=== PATIENT | female | born 1990 | race Caucasian/White ===

== ENCOUNTER 2018-08-19 15:10 | Observation (INO) | payer OTHER ==
--- NOTE | 2018-08-19 15:39 | OBPROG ---
Labor Progress Note Assessment/Plan: Assessment: 27 yo G1 at 38w6d, presents with one mild range BP in clinic and new irregular ctxs - for labor check and PIH eval. PIH labs all WNL except elevated LDH mildly elevated and PCR came back 0.78. BP's here have been normal to LOW during her evaluation - most recently 110s/ 60s. We've had no further mild range BP's - no dx of GHTN or PIH at this time. SCE repeated and unchanged. Will have back to clinic for BP check in next 1-2 days - precautions reviewed. LINN Subjective/Intrapartum Course: Saw Ameena in clinic this afternoon - added on for labor check. Also found to have 140/92 BP. Ctx's started at 0100 this morning - 1-2cm, 70%, -2, soft, mid position. Objective: Laboratory Tests 08/19/18 08/19/18 08/19/18 15:55 15:55 15:55 Hct 37.8 L MCV 85.3 Plt Count 281 BUN 12 Creatinine 0.7 Estimated GFR > 60 Uric Acid 6.1 Total Bilirubin 0.6 Conjugated Bilirubin 0.4 Unconjugated Bilirubin 0.2 AST 19 ALT 37 Lactate Dehydrogenase 620 H Ur Random Creatinine 20.4 U Random Total Protein 16 H PCR 0.78 - SVE Dilation (cm): 1 (1-2) Effacement (%): 75 (70) Station: -2 Membranes: Intact - Contraction Pattern Assessment Current Contraction Pattern: Irregular - FHR Assessment Twin A FHR (bpm): 130 FHR Pattern Variability: Moderate FHR Category: 1 ICD10 Worksheet Patient Problems: Problems Problem Status Onset Proteinuria affecting Acute - ICD10 Problem Qualifiers (1) Proteinuria affecting Qualifiers: Trimester: third trimester Qualified Code(s): O12.13 - Gestational proteinuria, third trimester
[2018-08-19 16:17] LABS: PLATELET COUNT 281 10^3/uL (150-400)
== END 2018-08-19 17:20 | disposition home or self-care (01) ==
LOC: FLD 15:10
PROVIDERS: ADMIT Obstetrics & Gynecology; ATTEND Obstetrics & Gynecology
DX: O99.89 Other specified diseases and conditions complicating pregnancy, childbirth and the puerperium (principal); R03.0 Elevated blood-pressure reading, without diagnosis of hypertension; O47.1 False labor at or after 37 completed weeks of gestation; Z3A.38 38 weeks gestation of pregnancy
CPT/HCPCS: G0378

== ENCOUNTER 2018-08-21 11:11 | Inpatient (IN) | payer OTHER ==
[2018-08-21] MEDS ORDERED: AMMONIA AROMATIC 1 EACH AMP IH ONE (11:24)
[2018-08-21] MEDS ORDERED: OLIVE OIL 118 ML BTL MISC ONE (11:24)
[2018-08-21] MEDS ORDERED: TERBUTALINE SULFATE 1 MG/ML VIAL ONE (11:24)
[2018-08-21] MEDS ORDERED: LIDOCAINE 1% 300 MG/30 ML SDV ONE (11:24)
[2018-08-21] MEDS ORDERED: MISOPROSTOL 200 MCG TAB ONE (11:25)
[2018-08-21] MEDS ORDERED: OXYTOCIN/RINGERS LACTATE 20 UNIT/1,000 ML BAG IV ONE (11:25)
[2018-08-21] MEDS ORDERED: OXYTOCIN 10 UNIT/ML VIAL ONE (11:25)
[2018-08-21] MEDS ORDERED: EPSOM SALT 454 GM TP PRN (11:40)
[2018-08-21] MEDS ORDERED: MISOPROSTOL 200 MCG TAB PR PRN (11:40)
[2018-08-21] MEDS ORDERED: LR 1,000 ML IV PRN (11:40)
[2018-08-21] MEDS ORDERED: LIDOCAINE 1% 300 MG/30 ML SDV SC PRN (11:40)
[2018-08-21] MEDS ORDERED: IBUPROFEN 600 MG TAB PO PRN (11:40)
[2018-08-21] MEDS ORDERED: OXYTOCIN/RINGERS LACTATE 1,000 ML IV PRN (11:40)
[2018-08-21] MEDS ORDERED: OLIVE OIL 118 ML BTL MISC PRN (11:40)
[2018-08-21 12:27] LABS: PLATELET COUNT 286 10^3/uL (150-400)
[2018-08-21] MEDS ORDERED: fentaNYL 2MCG/ML/BUP 0.1% RTU 100 ML BAG EP ONE (16:39)
[2018-08-21] MEDS ORDERED: LIDO/EPI 2% **for epidural** 20 ML SDV ONE (16:42)
--- NOTE | 2018-08-21 16:50 | GHP ---
[f rep st] PREOP HISTORY AND PHYSICAL DATE OF ADMISSION: 08/21/2018 HISTORY: The patient is a 27-year-old, G1, P0, at 39+ weeks' gestation with an estimated due date of 08/27/2018, who presents in early active labor. The patient reports that contractions have been hap pening relatively frequently for several days. However, last p.m., approximately 10:30, the patient noticed increased intensity. The patient states that throughout the night, they remained the 4-7 min utes apart with moderate intensity, which she could not sleep. The patient was seen at [facility] for an office visit this a.m. and was found to be 5-6 cm dilated, 90% effaced, and the patien t was sent to Labor and Delivery. The patient had a blood pressure in the office of 152/70 and PIH l abs were ordered upon admission. The patient has been ambulating in the simon as her blood pressures have been very reassuringly normal on Labor and Delivery. Contractions continue every 3-4 minutes wi th moderate intensity. Recent exam shows the cervix is now 6 cm, 100% effaced, at -1 station and the patient requests rupture of membranes. This is performed and old blood tinged fluid is obtained. T he patient now with increased intensity and requesting an epidural. CARE: The patient has been with [facility] since 10 weeks' gestation. The patie nt has had ultrasounds assessing ovarian cysts with the initial ultrasound finding likely a dermoid c yst on her left ovary that was 6.1 cm. The patient was given caution about possible ovarian torsion. At the anatomy sono, the left ovarian mass was slightly smaller at 4.7 cm and no persistent right o varian cyst. Anatomy all normal, and the estimated weight was the 89th percentile. Essentiall y the patient's has been uncomplicated. She did have a slightly elevated blood pressure at 37 weeks, but denies any headaches or nausea or vomiting. The patient is more fatigued currently du e to contractions for several days. LABS: Include maternal blood type O positive with negative antibody screen. RPR nonreactiv e. Rubella immune. Hepatitis B surface antigen negative. HIV negative. Early 1-hour Glucola alejandro l, and the repeat at 28 weeks was normal. Standard genetic panel reveals that the patient has a william gn variant of Noel-Sachs carrier. The patient's TSH was normal. Urinalysis and culture negative. Pa p smear negative with negative HPV. Gonorrhea and chlamydia were negative. Verified genetic testing was negative and MSAFP was normal. Hematocrit stable at 39%. Varicella testing revealed equivocal i mmunity. GBS culture was negative. The patient received the Tdap vaccination on 07/04/2018. PAST MEDICAL HISTORY: Patient with HSV 1 with only oral ulcers. PAST SURGICAL HISTORY: Odontectomy in high school. ALLERGIES: Patient has no known drug allergies. CURRENT MEDICATIONS: Only vitamins. SOCIAL HISTORY: The patient is , lives with her . The patient is a nonsmoker. No alc ohol or drug use. PHYSICAL EXAMINATION: GENERAL: Upon admission, the patient is an obese, white female in moderate in creasing distress with contractions since the rupture of membranes. VITAL SIGNS: Blood pressures on Labor and Delivery have been 120s/60s to 70s. LUNGS: Clear to auscultation bilaterally. CARDIOVASC ULAR: Regular rate and rhythm. ABDOMEN: Gravid and obese. The heart tone monitoring reveals category 1 tracing with accelerations and good variability. No decelerations noted. Contractions e very 3-4 minutes. Exam revealed 6 cm, 100% effaced, -1 station, and artificial rupture of membranes performed. EXTREMITIES: 1 to 2+ peripheral edema. ADMISSION LABS: CBC shows a white count of 18, hemoglobin 13, hematocrit 39, platelets 289,000. PIH panel is normal with creatinine 0.7. Liver function test normal. Uric acid is 6.6. P:C ratio is 0 .48 with a calculated proteinuria of 607 mg. ASSESSMENT: Intrauterine at 39+ weeks' gestation. Active labor with rupture of membranes. GBS negative. 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 Varicella equivocal. Left dermoid cyst 4 cm in . Proteinuria without hypertension. PLAN: Patient will receive an epidural and will add Pitocin if necessary to continue labor. Will re check dermoid cyst . We will continue to watch blood pressures, but currently patient does not reach hypertensive criteria for preeclampsia. Artificial rupture of membranes with blood-tinged fluid. /[id number]/MODL
--- NOTE | 2018-08-21 17:00 | PREANESOB ---
Obstetric Pre-Anesthesia Info - General Info Proposed Procedure: Continuous Labor Epidural : 1 Para: 0 ROLANDO: 08/27/18 Gestational Age: 39 week(s) and 1 day(s) - Info Status: Full Term Monitors: External FHR Pattern: Reassuring - Labor Status Cervical Dilation per last OB SVE: 6 Labor Epidural: Yes Anesthesia Allergies/Adverse Reactions: Allergy/AdvReac Type Severity Reaction Status Date / Time No Known Allergies Allergy Verified 11/24/14 08:26 Home Medications: Medication Instructions Recorded Bcp 11/23/14 Visit Medications: Generic Name Dose Route Start Last Admin Trade Name Freq PRN Reason Stop Dose Admin Lactated Ringer's 1,000 mls @ 0 mls/hr 08/21/18 11:40 Lr IV 08/22/18 11:39 PRN PRN SEE PROTOCOL CONDITIONS Protocol Per Protocol Oxytocin/Lactated Ringer's 1,000 mls @ 125 mls/hr 08/21/18 11:40 Pitocin 20 Units/Lr (Premix) IV PRN PRN Post bleeding Ibuprofen 600 mg 08/21/18 11:40 Motrin PO ONCE PRN post , pain Lidocaine HCl 300 mg 08/21/18 11:40 Lidocaine Hcl 1% SC 02/17/19 11:39 ONCE PRN episiotomy Magnesium Sulfate 454 gm 08/21/18 11:40 Epsom Salt TP 02/17/19 11:39 Q1H PRN perineal discomfort Misoprostol 800 - 1,000 mcg 08/21/18 11:40 Cytotec [place] ONCE PRN Vaginal Atony/Bleeding [place] Oil 118 ml 08/21/18 11:40 Sweet Oil MISC 02/17/19 11:39 ONCE PRN perineal massage Discontinued Medications Generic Name Dose Route Start Last Admin Trade Name Freq PRN Reason Stop Dose Admin Ammonia (Aromatic Spirit) Confirm 08/21/18 11:24 Ammonia Aromatic Administered 08/21/18 11:25 Dose 1 each IH .STK-MED ONE Fentanyl/Bupivacaine HCl Confirm 08/21/18 16:39 Fentanyl/Bupivacaine/Ns 2 Mcg/Ml 0.1% (Premix Administered 08/21/18 16:40 Dose 100 ml EP .STK-MED ONE Lidocaine HCl Confirm 08/21/18 11:24 Lidocaine Hcl 1% Administered 08/21/18 11:25 Dose 300 mg .ROUTE .STK-MED ONE Lidocaine/Epinephrine Confirm 08/21/18 16:42 Xylocaine 2%-Epi 1:200,000 Administered 08/21/18 16:43 Dose 20 ml .ROUTE .STK-MED ONE Misoprostol Confirm 08/21/18 11:25 Cytotec Administered 08/21/18 11:26 Dose 1,000 mcg .ROUTE .STK-MED ONE Moody Oil Confirm 08/21/18 11:24 Sweet Oil Administered 08/21/18 11:25 Dose 118 ml MISC .STK-MED ONE Oxytocin Confirm 08/21/18 11:25 Pitocin Administered 08/21/18 11:26 Dose 30 unit .ROUTE .STK-MED ONE Oxytocin/Lactated Ringer's Confirm 08/21/18 11:25 Pitocin 20 Units/Lr (Premix) Administered 08/21/18 11:26 Dose 20 unit IV .STK-MED ONE Terbutaline Sulfate Confirm 08/21/18 11:24 Brethine Administered 08/21/18 11:25 Dose 1 mg .ROUTE .STK-MED ONE - Anesthesia History Response to Local Anesthetics: Normal Anesthesia & Operative History: No Prior Problems Family Anesthesia History: Not Applicable, Negative - Vital Signs Height/Weight (Nursing): Height 172.72 cm Weight 113.852 kg - Focused Exam Neck exam: FROM Mallampati Score: Class 2 Mouth exam: normal dental/mouth exam Pulmonary: clear to auscultation Cardiovascular: regular rate and rhythym Labs: 08/21/18 12:09 08/21/18 12:09 Patient ABO/Rh O POSITIVE 08/21/18 12:09 Uric Acid 6.6 mg/dL (2.5-6.8) 08/21/18 12:09 Total Bilirubin 0.5 mg/dL (0.1-1.4) 08/21/18 12:09 Conjugated Bilirubin 0.2 mg/dL (0.0-0.5) 08/21/18 12:09 Unconjugated Bilirubin 0.3 mg/dL (0.0-1.1) 08/21/18 12:09 AST 17 IU/L (14-46) 08/21/18 12:09 ALT 33 IU/L (9-52) 08/21/18 12:09 Lactate Dehydrogenase 506 IU/L (313-618) 08/21/18 12:09 - Plan Consent Signed and on Chart: Yes Patient/Guardian Understands and Agrees to Plan: Yes
[2018-08-21] MEDS ORDERED: PHENYLEPHRINE HCL 100 MCG/ML SYR IVP PRN (17:01)
[2018-08-21] MEDS ORDERED: ONDANSETRON 4 MG/2 ML VIAL IVP PRN (17:01)
[2018-08-21] MEDS ORDERED: METOCLOPRAMIDE 10 MG/2 ML VIAL IVP PRN (17:01)
[2018-08-21] MEDS ORDERED: NALOXONE HCL 0.4 MG/ML INJ IVP PRN (17:01)
[2018-08-21] MEDS ORDERED: fentaNYL 2MCG/ML/BUP 0.1% RTU 100 ML EP SCH (17:30)
[2018-08-21] MEDS ORDERED: LR 500 ML IV SCH (17:30)
--- NOTE | 2018-08-21 18:34 | OBPROG ---
Labor Progress Note Assessment/Plan: Assessment: IUP at 39w1d active labor, really increased after AROM comf with PAM Plan: complete dilation, will begin pushing 08/21/18 18:31 Subjective/Intrapartum Course: 08/21/18 18:33 pt comfortable with PAM - some pressure Objective: 08/21/18 12:09 08/21/18 12:09 Patient ABO/Rh O POSITIVE 08/21/18 12:09 Uric Acid 6.6 mg/dL (2.5-6.8) 08/21/18 12:09 Total Bilirubin 0.5 mg/dL (0.1-1.4) 08/21/18 12:09 Conjugated Bilirubin 0.2 mg/dL (0.0-0.5) 08/21/18 12:09 Unconjugated Bilirubin 0.3 mg/dL (0.0-1.1) 08/21/18 12:09 AST 17 IU/L (14-46) 08/21/18 12:09 ALT 33 IU/L (9-52) 08/21/18 12:09 Lactate Dehydrogenase 506 IU/L (313-618) 08/21/18 12:09 - SVE Dilation (cm): 10 Effacement (%): 100 Station: -1 Membranes: AROM Amniotic Fluid Color: Clear Dilation Complete Date: 08/21/18 Dilation Complete Time: 18:15 - Contraction Pattern Assessment Current Contraction Pattern: Regular (q 3-4 min) - FHR Assessment Dumont FHR (bpm): 140 FHR Pattern Variability: Moderate FHR Category: 2 (variable decels) Oxytocin Orders Assessment - Pre-Induction/Augmentation Assessment Gestational Age: 39 week(s) and 1 day(s) ICD10 Worksheet Patient Problems: Problems Problem Status Onset Proteinuria affecting Acute
[2018-08-21] MEDS: ACETAMINOPHEN 500 MG TAB PO ONE ×2 (19:58→23:14)
--- NOTE | 2018-08-21 21:18 | OBDEL ---
Info Type: Vaginal Presentation at Delivery: Vertex L&D Analgesia/Anesthesia Type: Epidural, Local GBS+: No Intrapartum Medications: Generic Name Dose Route Start Last Admin Trade Name Freq PRN Reason Stop Dose Admin Lactated Ringer's 1,000 mls @ 0 mls/hr 08/21/18 11:40 08/21/18 20:14 Lr IV 08/22/18 11:39 1,000 mls PRN PRN Administration SEE PROTOCOL CONDITIONS Protocol Per Protocol Fentanyl/Bupivacaine HCl 100 mls @ 0 mls/hr 08/21/18 17:30 08/21/18 20:15 Fentanyl/Bupivacaine/Ns 2 Mcg/Ml 0.1% (Premix EP 08/31/18 17:29 100 mls CONT MYRNA Administration Protocol As Directed [place] Oil 118 ml 08/21/18 11:40 08/21/18 20:14 Sweet Oil MISC 02/17/19 11:39 1 btl ONCE PRN Administration perineal massage Discontinued Medications Generic Name Dose Route Start Last Admin Trade Name Freq PRN Reason Stop Dose Admin Acetaminophen 1,000 mg 08/21/18 20:00 08/21/18 19:58 Tylenol PO 08/21/18 20:01 1,000 mg ONCE ONE Administration Oxytocin/Lactated Ringer's 1,000 mls @ 125 mls/hr 08/21/18 11:40 08/21/18 20: 15 Pitocin 20 Units/Lr (Premix) IV 1,000 mls PRN PRN Administration Post bleeding - Hospital Course Intrapartum: 08/21/18 18:33 pt comfortable with PAM - some pressure Indications for Delivery: Spontaneous Labor Vaginal Delivery - Delivery Provider Delivery Physician/CNM: Corrina Stark - Labor and Delivery Onset of Contractions Date: 08/20/18 Onset of Contractions Time: 22:30 Onset of Contractions Type: Spontaneous Rupture of Membranes Date: 08/21/18 Rupture of Membranes Time: 15:49 Rupture of Membranes Type: Artificial Amniotic Fluid Color: Clear Dilation Complete Date: 08/21/18 Dilation Complete Time: 18:12 Placenta Delivery Date: 08/21/18 Placenta Delivery Time: 20:19 Total Hours of Labor: 21 Non-surgical Procedures: Amniotomy Laceration: 1st Degree (right labial, small tear left labial), 2nd Degree ( midline) Repair: 3-0, Vicryl Vaginal Sponge Count Correct: Yes Vaginal Needle Count Correct: Yes Vaginal Sweep Performed: Yes EBL: 300 Delivery Events: None Delivery Comment: pt was tachycardic in 120- 130s with pushing. FHTs in 140-150s - Medications Labor Augmentation/Induction Methods Used: None Data ROLANDO: 08/27/18 Gestational Age: 39 week(s) and 1 day(s) Dumont Delivery Date: 08/21/18 Delivery Time: 20:11 Sex of Infant: Male Score (1 Min): 8 Score (5 Min): 9 ICD10 Worksheet Patient Problems: Problems Problem Status Onset (spontaneous vaginal delivery) Acute Proteinuria affecting Acute
[2018-08-22] MEDS: ACETAMINOPHEN 325 MG TAB PO PRN ×4 (04:37→22:36)
[2018-08-22] MEDS: IBUPROFEN 600 MG TAB PO PRN ×4 (04:37→22:36)
[2018-08-22] MEDS: DOCUSATE SODIUM 100 MG CAP PO PRN ×2 (10:43→22:36)
--- NOTE | 2018-08-22 12:21 | OBPP ---
Progress Note Assessment/Plan: Assessment: 27 yo now - PPD1 s/p at 39w2d. Doing great, routine cares, home tomorrow. Rh pos, Rubella immune, GBS neg. L dermoid cyst - F/u w US PP. Tachycardic to 120-130s w delivery - now resolved. Anemia - Hct 33 from 39, will start iron. JM Subjective/ Course: 08/22/18 12:58 Ameena is doing great this AM, no complaints. Grandparents in visiting. BF going well, pain well controlled. Tachycardia resolved. Objective: 08/22/18 04:45 08/21/18 12:09 Patient ABO/Rh O POSITIVE 08/21/18 12:09 Uric Acid 6.6 mg/dL (2.5-6.8) 08/21/18 12:09 Total Bilirubin 0.5 mg/dL (0.1-1.4) 08/21/18 12:09 Conjugated Bilirubin 0.2 mg/dL (0.0-0.5) 08/21/18 12:09 Unconjugated Bilirubin 0.3 mg/dL (0.0-1.1) 08/21/18 12:09 AST 17 IU/L (14-46) 08/21/18 12:09 ALT 33 IU/L (9-52) 08/21/18 12:09 Lactate Dehydrogenase 506 IU/L (313-618) 08/21/18 12:09 Temp Pulse Resp BP Pulse Ox 36.6 C 80 16 120/88 H 95 08/22/18 10:30 08/22/18 10:30 08/22/18 10:30 08/22/18 10:30 08/22/18 01:45 Uterine Position/Fundal Height: Umbilicus -2 Uterine Tone: Firm
[2018-08-23] MEDS: ACETAMINOPHEN 325 MG TAB PO PRN ×2 (04:31→10:46)
[2018-08-23] MEDS: IBUPROFEN 600 MG TAB PO PRN ×2 (04:32→10:46)
--- NOTE | 2018-08-23 08:33 | POSTANESTH ---
Post Anesthetic Evaluation Cardiovascular Status: Normal, Stable Respiratory Status: Normal, Stable Level of Consciousness/Mental Status: Can Participate in Eval Pain Control: Adequate, Prn Tx Ordered Nausea/Vomiting Control: Adequate, Prn Tx Ordered Complications Possibly Related to Anesthesia: None Noted Notes: Pt. reports good analgesia from PAM, without specific complaints, ambulating, etc. without difficulty.
[2018-08-23] MEDS: DOCUSATE SODIUM 100 MG CAP PO PRN (10:46)
[2018-08-23] MEDS ORDERED: [UNRECOGNIZED DRUG - OTHER] SC ONE (11:30)
--- NOTE | 2018-08-23 11:31 | OBPP ---
Progress Note Assessment/Plan: Assessment: ppd# 2 s/p uncomplicated post course breast feeding anemia - iron O+/RI varicella non immune - varicella vaccine Plan: 08/23/18 11:28 08/23/18 11:30 Subjective/ Course: 08/22/18 12:58 Ameena is doing great this AM, no complaints. Grandparents in visiting. BF going well, pain well controlled. Tachycardia resolved. 08/23/18 11:30 patient is doing well. denies headache and changes in vision. normal lochia. denies headache and changes in vision. breast feeding is going well. denies headache and changes in vision. ready to go home. reviewed varicella non immune - will get vaccine. discussed continuing iron and vitamins. Objective: 08/22/18 04:45 08/21/18 12:09 Patient ABO/Rh O POSITIVE 08/21/18 12:09 Uric Acid 6.6 mg/dL (2.5-6.8) 08/21/18 12:09 Total Bilirubin 0.5 mg/dL (0.1-1.4) 08/21/18 12:09 Conjugated Bilirubin 0.2 mg/dL (0.0-0.5) 08/21/18 12:09 Unconjugated Bilirubin 0.3 mg/dL (0.0-1.1) 08/21/18 12:09 AST 17 IU/L (14-46) 08/21/18 12:09 ALT 33 IU/L (9-52) 08/21/18 12:09 Lactate Dehydrogenase 506 IU/L (313-618) 08/21/18 12:09 Temp Pulse Resp BP Pulse Ox 36.5 C 68 16 135/71 H 95 08/23/18 10:45 08/23/18 10:45 08/23/18 10:45 08/23/18 10:45 08/22/18 20:00 Uterine Position/Fundal Height: Umbilicus -2 Physical Exam - Physical Exam Neck: non-tender, full range of motion, supple Respiratory: chest non-tender, lungs clear, normal breath sounds Cardiac/Chest: normal peripheral pulses, regular rate, rhythm Abdomen: normal bowel sounds, non-tender, other (fundus firm and non tender) Extremities: normal range of motion, non-tender, normal inspection, normal capillary refill, pedal edema Skin: normal color, warm/dry Neuro/Psych: no motor/sensory deficits, alert, normal mood/affect, oriented x 3
--- NOTE | 2018-08-23 11:32 | OBGCSDC ---
General Delivery Information - General Info : 1 Para: 1 Abortions: 0 Type: Vaginal L&D Analgesia/Anesthesia Type: Epidural Admission Date: 08/21/18 Labs: Patient ABO/Rh O POSITIVE 08/21/18 12:09 Hct 33.3 % (38.0-47.0) L 08/22/18 04:45 - Hospital Course Intrapartum: 08/21/18 18:33 pt comfortable with PAM - some pressure : 08/22/18 12:58 Ameena is doing great this AM, no complaints. Grandparents in visiting. BF going well, pain well controlled. Tachycardia resolved. 08/23/18 11:30 patient is doing well. denies headache and changes in vision. normal lochia. denies headache and changes in vision. breast feeding is going well. denies headache and changes in vision. ready to go home. reviewed varicella non immune - will get vaccine. discussed continuing iron and vitamins. Vaginal - Delivery Provider Delivery Physician/CNM: Corrina Stark - Diagnosis Labor: Spontaneous Rupture of Membranes Type: Artificial Amniotic Fluid Color: Clear Laceration: 1st Degree (right labial, small tear left labial), 2nd Degree ( midline) Repair: 3-0, Vicryl Delivery Events: None - Procedures Non-surgical Procedures: Amniotomy - Delivery Non-surgical Procedures: Amniotomy EBL: 300 Data ROLANDO: 08/27/18 Gestational Age: 39 week(s) and 3 day(s) [place]ont Delivery Date: 08/21/18 Delivery Time: 20:11 Sex of Infant: Male [place] Weight (gm): 3864 g Score (1 Min): 8 Score (5 Min): 9 Discharge Information - Discharge Information Condition: Good Instruction/Follow Up: Four Weeks (post parum mood check ), Six Weeks (post visit)
[2018-08-23 11:40] VITALS: BP 131/75
== END 2018-08-23 13:10 | disposition home or self-care (01) | DRG 807 ==
LOC: FLD 11:11 → FOB 23:04
PROVIDERS: ADMIT Obstetrics & Gynecology; ATTEND Obstetrics & Gynecology
DX: O70.0 First degree perineal laceration during delivery (principal); Z37.0 Single live birth; Z3A.39 39 weeks gestation of pregnancy; O70.1 Second degree perineal laceration during delivery; O26.893 Other specified pregnancy related conditions, third trimester; D27.1 Benign neoplasm of left ovary; O99.02 Anemia complicating childbirth; D64.9 Anemia, unspecified
CPT/HCPCS: J2590; J3105